=== PATIENT | female | born 1980 | race Hispanic/Latino ===

== ENCOUNTER 2018-02-27 16:02 | Observation (INO) | payer BC ==
[2018-02-27] MEDS ORDERED: Morphine 2 MG/2 ML SYR IV PRN (16:58)
[2018-02-27 17:10] LABS: Absolute Lymphocytes (CBC) 1.6 K/uL (0.7-4.9); Absolute Monocytes 0.7 K/uL (0.1-1.3); Absolute Neutrophil 5.4 K/uL (1.8-8.0); Basophils % 0.4 % (0-1.3); Eosinophils % 0.4 % (0-4.4); Hematocrit 40.2 % (36.0-45.0); Lymphocytes % 20.3 % (15.3-44.8); MCH 30.9 pg (27.0-35.0); MCV 90.6 fL (80-100); MPV 8.5 fL (7.6-11.3); Monocytes % 9.2 % (3.3-12.3); RBC Red Blood Cell Count 4.44 M/uL (3.86-4.86)
[2018-02-27 17:13] VITALS: BMI 23.4
[2018-02-27] MEDS: NA CHLORIDE 0.9% 1,000 ML IV SCH (17:33)
[2018-02-27] MEDS: HYDROCODONE/APAP 10/325 TAB PO PRN (18:45)
--- NOTE | 2018-02-27 19:33 | RAD REPORT ---
EXAM DESCRIPTION: MRI - C Spine Wo Cont CLINICAL HISTORY: Acute radiculopathy. COMPARISON: None. FINDINGS: Cervical vertebral bodies are normal in height and alignment. No suspicious marrow edema or marrow replacing process. No fracture or traumatic subluxation. The craniocervical junction is normal. C2-3 level: No significant findings. C3-4 level: No significant findings. C4-5 level: No significant findings. C5-6 level: Minimal posterior disc bulge. C6-7 level: Minimal posterior disc bulge asymmetric to the left. C7-T1 level: No significant findings. Cervical cord is normal in size and signal. IMPRESSION: Minimal lower cervical spondylosis.
[2018-02-27] MEDS: METHYLPREDNISOLONE 125 MG INJ IV SCH (21:54)
[2018-02-27 23:45] VITALS: O2SAT 95
[2018-02-28] MEDS: HYDROCODONE/APAP 10/325 TAB PO PRN ×3 (00:46→13:22)
[2018-02-28 01:54] LABS: Urine Appearance CLEAR; Urine Bilirubin NEGATIVE (NEG); Urine Blood NEGATIVE (NEG); Urine Color YELLOW; Urine Glucose NEGATIVE (NEG); Urine Protein NEGATIVE (NEG); Urine Specific Gravity >=1.030 (1.005-1.030); Urine pH 6.5 (5.0-7.0)
[2018-02-28 01:55] LABS: Urine Microscopic Reflex NO UMIC
[2018-02-28 05:33] LABS: Absolute Lymphocytes (CBC) 0.5 K/uL (0.7-4.9); Absolute Monocytes 0.1 K/uL (0.1-1.3); Absolute Neutrophil 6.2 K/uL (1.8-8.0); Basophils % 0.1 % (0-1.3); Hematocrit 39.7 % (36.0-45.0); Lymphocytes % 6.8 % (15.3-44.8); MCV 92.3 fL (80-100); MPV 8.7 fL (7.6-11.3); Monocytes % 1.1 % (3.3-12.3)
[2018-02-28] MEDS: NA CHLORIDE 0.9% 1,000 ML IV SCH ×2 (06:27→13:00)
[2018-02-28 06:41] LABS: Blood Morphology Comment NOT SEEN (NOT SEEN); Platelet Estimate ADEQ
[2018-02-28] MEDS: METHYLPREDNISOLONE 125 MG INJ IV SCH (09:57)
[2018-02-28] MEDS ORDERED: METHOCARBAMOL 1,000 MG in NA CHLORIDE 0.9% 100 ML IV PRN (14:15)
[2018-02-28 16:28] VITALS: BP 146/79; TEMP 97.1
--- NOTE | 2018-03-02 12:49 | DS ---
Date of Discharge: 02/28/2018 SHORT-STAY SUMMARY The patient was admitted to the hospital on 01/28 after failing outpatient treatment with various mod alities, but was diagnosed as acute bout of torticollis. The patient states she was watching TV when she suddenly had an onset of left-sided back pain, marked difficulty turning her head. Tried some h ome remedies. No improvement. Seen in the office, is given steroids orally, injection, muscle relax ants, analgesics. Over the next few days, her pain increased, decreased motion of her neck. She had one significant episode what she describes as some paresthesias down her left arm. She was therefor e admitted for more intensive care. Her x-ray of her cervical spine was negative and MRI was also wi thin normal limits as was her CBC. She was started on IV analgesics, which made minimal difference. IV steroids were also instituted at the same time and also oral pain meds. Over the next 18 hours, she noticed some minimal improvement. Then, Robaxin was given IV with marked improvement where that was a combination as a muscle relaxant with the steroids finally kicking in, which is the most likely scenario in any event. On 02/28/2018 she was able to turn her head, had minimal discomfort. No fur ther radiculopathy signs or symptoms and felt well enough to be discharged home. She was placed on T ylenol 3, Robaxin 750 t.i.d., and Valium 5 mg q.8 h p.r.n. to follow up if necessary next week. Final Diagnoses: Acute torticollis. HR/MODL Voice ID: [id number] Report ID: [id number]
== END 2018-02-28 18:33 | disposition home or self-care (01) ==
LOC: 4TH 16:15
PROVIDERS: ADMIT Family Medicine; ATTEND Family Medicine
DX: M43.6 Torticollis (principal)
CPT/HCPCS: 36415; 72141; 81003; 85025; 87086; 87088; G0378; J2270; J2800; J2930; J7030